=== PATIENT | female | born 1990 | race Hispanic/Latino ===

== ENCOUNTER → 2022-06-27 | Day surgery (SDC) | payer OTHER ==
[~2022-06-27] MED LIST: ATORVASTATIN CA20 MG PO; BACLOFEN20 MG PO; BLISOVI FE 1-21 EACH PO; FESOTERODINE FUM4 MG PO; LIDOCAINE HCL 2% LOCAL INJ 5 ML SDV VIAL INJ ONE; LORATADINE-D 21 EAC1 PO; MIDAZOLAM HCL 2 MG/2 ML VIAL ONE; MULTI-VITAMIN1 EACH PO; OMEPRAZOLE40 MG PO; PROBIOTIC & AC1 EACH PO; PROPOFOL IV EMULSION 10 MG/ML 20 ML VIAL ONE
[2022-06-27 08:05] VITALS: BP 113/75
== END | disposition home or self-care (01) ==
LOC: OR 08:15
PROVIDERS: ATTEND Internal Medicine Gastroenterology
DX: K21.9 Gastro-esophageal reflux disease without esophagitis (principal); K29.70 Gastritis, unspecified, without bleeding; K44.9 Diaphragmatic hernia without obstruction or gangrene; R19.5 Other fecal abnormalities; R19.7 Diarrhea, unspecified; Z71.3 Dietary counseling and surveillance; G80.9 Cerebral palsy, unspecified; R53.1 Weakness; E78.00 Pure hypercholesterolemia, unspecified; Z71.89 Other specified counseling; Z79.899 Other long term (current) drug therapy; Z68.31 Body mass index [BMI] 31.0-31.9, adult
CPT/HCPCS: 43239; 81025; C9113; J2001; J2250; J2704